=== PATIENT | male | born 1990 | race Caucasian/White ===

== ENCOUNTER 2023-08-17 11:58 | Outpatient (CLI) | payer BC ==
[2023-08-17] MEDS ORDERED: Barium Sulfate 96% 176 GM BOT (xray ONLY) PO ONE (12:14)
[2023-08-17] MEDS ORDERED: E-Z-HD 98% W/W 340GM BOT (x-ray ONLY) ONE (12:14)
== END 2023-08-17 11:59 | disposition home or self-care (01) ==
LOC: SJX 11:58
PROVIDERS: ATTEND Otolaryngology Plastic Surgery within the Head & Neck
DX: R13.10 Dysphagia, unspecified (principal)
CPT/HCPCS: 74220